=== PATIENT | female | born 1985 ===

== ENCOUNTER 2017-12-12 06:18 | Inpatient (IN) | payer OTHER ==
[2017-12-01 08:32] VITALS: BMI 29.8
[2017-12-12 06:45] LABS: HEMOGLOBIN 13.3 g/dL (12.0-16.0); MEAN CELL VOLUME 90.8 fl (81.0-99.0); MEAN CORPUSCULAR HEMOGLOBIN 30.3 pg (27.0-31.0); MEAN CORPUSCULAR HGB CONC 33.4 g/dL (33.0-37.0); RBC 4.4 Mil/uL (3.80-5.20); RED CELL DISTRIBUTION WIDTH 13.9 % (11.5-14.5); WHITE BLOOD COUNT 10.5 K/uL (4.8-10.8)
[2017-12-12] MEDS ORDERED: Lactated Ringer's 1,000 ML IV ONE ×3 (07:20→13:30)
[2017-12-12] MEDS ORDERED: Propofol 10 mg/ml Inj (20 ML) ONE (07:21)
[2017-12-12] MEDS ORDERED: ePHEDrine 50 mg/ml Inj ONE (07:21)
[2017-12-12] MEDS ORDERED: Lidocaine 4% (Laryng-O-Jet) Kit MM ONE (07:22)
[2017-12-12] MEDS ORDERED: Rocuronium 10 mg/ml (5 ml) ONE ×2 (07:22→10:38)
[2017-12-12] MEDS ORDERED: Succinylcholine 200 mg/10 ml Inj IV ONE (07:22)
[2017-12-12] MEDS ORDERED: Midazolam 2 MG/2 ML VIAL ONE (07:22)
[2017-12-12] MEDS ORDERED: Bupivacaine 0.5% Inj(30mL) ONE (07:25)
[2017-12-12] MEDS ORDERED: Sevoflurane - Inhalation Anesthetic Liq (250 ml) ONE (07:44)
[2017-12-12] MEDS ORDERED: Dexamethasone 4 mg/1 ml ONE (09:14)
[2017-12-12] MEDS: Vasopressin 20 Units/ml Inj ONE ×2 (09:46→10:00)
[2017-12-12] MEDS: Methylene Blue 10 mg/mL(10ml) IV ONE ×2 (09:47→10:05)
[2017-12-12] MEDS ORDERED: Desflurane Inhalation Anesthetic Liq (240 ml) ONE (11:26)
[2017-12-12] MEDS ORDERED: HEMOSTATIC MATRIX 10 ML DIS.NEEDLE TOP ONE ×2 (12:49→13:00)
[2017-12-12] MEDS ORDERED: DiphenhydrAMINE 50 mg/ml Inj IVP PRN (13:34)
[2017-12-12] MEDS ORDERED: Oxycodone/Acetaminophen 5/325 mg Tab PO PRN (13:40)
--- NOTE | 2017-12-12 13:40 | PCM.SURG1 ---
Surgeon's Initial Post Op Note - Surgeon's Notes Surgeon: erika armstrong md Procurement Analyst: Lacho NGUYEN Type of Anesthesia: General Endo, Local Pre-Operative Diagnosis: chronic pelvic pain. abnormal uterine bleeding. fibroid uterus. ovarian cysts Operative Findings: significant abdominal pelvic adhessions, bowel and omentum adherenet to anterior abd wall and pelvic viscera. multiple paratubal cysts large on right. complex left ovarin cyst. bulky uterus anterior wall myoma and possible adenomyosis. essure coils removed and tubes reanastamosed. diagnostic cystscopy done and normal bladder and ureters anatomy noted. chromotubation showing normal spilage from both tubes following procedure. chronic pelvic pain. abnormal uterine bleeding. fibroid uterus. ovarian cysts Post-Operative Diagnosis: chronic pelvic pain. abnormal uterine bleeding. fibroid uterus. ovarian cysts Operation Performed: Robotic assisted myomectomy. Excision of ovarian cysts and tubal cysts. Extensive enterolysis and lysis of adhesions. Tubal reanastamosis. diagnostic cystoscopy. Chromotubation Specimen/Specimens Removed: myoma. essure coils. cysts Estimated Blood Loss: EBL {In ML}: 20 Blood Products Given: N/A Drains Used: No Drains Post-Op Condition: Good Date of Surgery/Procedure: 12/12/17 Time of Surgery/Procedure: 13:59
[2017-12-12] MEDS ORDERED: Sodium Chloride 0.9% 1,000 ML IV SCH (13:45)
[2017-12-12] MEDS ORDERED: ceFAZolin 2 GM in Sodium Chloride 0.9% 100 ML IVPB SCH (13:45)
[2017-12-12] MEDS: HYDROmorphone 0.5 mg/0.5 ml ISec IVP PRN ×4 (13:46→14:20)
[2017-12-12] MEDS ORDERED: HYDROmorphone 0.5 mg/0.5 ml ISec ONE (13:46)
[2017-12-12] MEDS ORDERED: ceFAZolin IV 2 gm in Dextrose 2 GM/50 ML BAG IVPB SCH (14:30)
--- NOTE | 2017-12-12 14:46 | PCM.OP ---
Operative Report - Operative Report Date of Surgery/Procedure: 12/12/17 Time of Surgery/Procedure: 14:44 Surgeon: erika armstrong md Conveyor Line Battery Charger: Lacho NGUYEN Anesthesia/Sedation: Gen. with ET tube Pre-Operative Diagnosis: Chronic pelvic pain,. Fibroid uterus,. Abnormal uterine bleeding Post-Operative Diagnosis: Chronic pelvic pain,. Fibroid uterus,. Abnormal uterine bleeding Indication for Surgery: Worsening chronic pelvic pain, status post essure procedure several years ago with subsequent pain, abnormal uterine bleeding Operative Findings: Significant adhesions pelvic and abdominal bowel and omentum adherent to abd wall. Coilds removed, paratubal cysts removed and tubes renastamosed, chromotubation showing normal tubes with spilage Procedure/Operation Description: Robotic myomectomy. Excision of essure titanium coils. Robotic reanastamosis of Fallopian tubes. Enterolysis / lysis of adhesions. Chromotubation. Excision of cysts ovarian and paratubal. Diagnostic cystoscopy. detailed operative description. This is a 32 year 's old female with an enlarged fibroid uterus, associated abnormal uterine bleeding, and chronic pelvic pain following an issue procedure several years ago. Following complete workup at the office which included an ultrasound , urodynamic study as well as Pap smear a decision was made to proceeds with a robotic assisted myomectomy, removal of titanium tubal coils and tubal reanastomosis. After proper consent was obtained from the patient was taken to the operating room where general anesthesia was obtained without difficulty. She was placed in dorsal lithotomy position her legs were placed in adjustable Rolo stirrups. Careful attention was placed to avoid over-flexion or over- rotation of the lower extremities at the hip or the knee joints. Exam under anesthesia revealed an enlarged fibroid uterus, adnexal tenderness bilaterally. She was prepped and draped appropriately for robotic assisted myomectomy and removal of tubal coils as well as re anastomoses. Bran catheter was inserted under sterile conditions. A standard size V-care uterine manipulator was inserted through the cervix and secured. Local anesthetic solutions of 0.25% Marcaine with epinephrine were utilized to infiltrate the skin prior to all abdominal skin incisions. A total of 20 mL of 0.25% Marcaine was utilized throughout the procedure. While tenting the abdominal wall, a Veres needle was carefully inserted above the umbilicus and a pneumoperitoneum was obtained. Intraperitoneal placement was confirmed with a droplet of water test through the needle as well as a significant drop in intra-abdominal pressure. A total of approximately 3 and half liters of CO2 gas was utilized to achieve pneumoperitoneum, and the limits intra-abdominal pressure was set at 15 mm. Approximately 1 cm above the umbilicus in the midline, an 8mm incision was made with a scalpel and a robotic trocar was introduced. A robotic camera was inserted and an initial survey of the patient's abdomen revealed an enlarged bulky fibroid uterus, boggy in appearance. Extensive peritoneal and omental adhesions involving loops of bowel and anterior abdominal well were identified; Extensive peritoneal adhesions were noted in the posterior cul-de-sac. Both ovaries and fallopian tubes appeared normal however adherent to the pelvic viscera and pelvic sidewall. Multiple ovarian cysts were noted including multiple larger paratubal cysts. The patient was placed in moderate Trendelenburg position. 3 robotic ports were utilized for this procedure. The first robotic port was placed on the patient's LEFT side approximately 8 cm superior today LEFT superior iliac crest. The second robotic port was placed 8 cm superior to the iliac crest on the RIGHT side. The third robotic port was placed approx. 8 cm right lateral the camera port in the midline. And finally an purchasing assistant port which was 12 mm in diameter was inserted approximately 8 cm LEFT lateral of the camera port in the midline. Conveyor Line Battery Charger port utilized was a VersaStep trocar system. All ports were approx. aligned along the same horizontal line on the abdomen in an arched fashion. All trocars were inserted under direct visualization while tenting the abdominal wall. The placement of the trocars was all accomplished under careful and meticulous placement under direct visualization. Following the placement of all trocars, the da Silver robotic system was docked in a parallel fashion without difficulty. The following instruments were utilized for this procedure: the bipolar cautery device, a monopolar ladonna and finally a ProGrasp. Meticulous and careful lysis of adhesions as well as enterolysis was accomplished utilizing the monopolar ladonna and bipolar device. Prior to the start of the myomectomy, both ureters and their courses were visualized; peristalsis bilaterally. Extensive lysis of adhesions and enterolysis was completed using the sharp and blunt dissection. Multiple bowel loops were released following the lysis of adhesions. Diluted Pitressin solution 40 units in 120 mL of saline was utilized to inject around the myomas capsules in the anterior wall of the uterus as well in the posterior uterine wall and finally the fundus.. The injection of the PITRESSIN solution into the uterine well to assist in hemostasis vaso-constriction was accomplished for a spinal needle inserted through the abdominal well into the peritoneal cavity. It was through these incisions, that all myomas were enucleated and removed to complete the myomectomy. For each incision, a full thickness elliptical incision was made into the serosa of the uterus and carried down to the myomas capsule. Blunt and sharp dissection was used to enucleate the myomas. An elliptical incision was made into the anterior uterine wall and a cluster of small myomas were enucleated and extracted from the patient's abdomen preexistent port. This was labeled appropriately and sent to pathology. Multilayer closure was needed to close the space where the myomas were removed from. Using a 2-0 v-lock in continues fashion, good hemostasis was achieved. Excess serosa was excised to allow for tight closure of the serosal surface. All serosal incisions were closed utilizing 3-0 Monocryl in a baseball-like stitch fashion. Both anterior and posterior large elliptical incisions were closed in a similar fashion. FloSeal's as well as Interceed were applied to all incisions. Excellent hemostasis was noted throughout. The abdomen was throughout irrigated and cleared of all clots and debris. At this time methylene blue solution was infused into the endometrial cavity and secure. SHARP and blunt dissection was carried out to identify the contour of the edges of the fallopian tube coils bilaterally. At the distal edge of each tube, sharp and blunt dissections were accomplished to identify the edge of the coil visualizing its tip clearly. Proximally, sharp and blunt dissections was carried to dissect out the corneal portion the tube was embedded within the uterine wall entering the endometrial cavity. Proper access to the endometrial cavity was apparent with this spillage of methylene blue once the incision and entry was made. Both coils or labeled and sent to pathology along with a portion of the fallopian tube attached to it. Ureteral stents were then inserted through the purchasing assistant port, 5 Japanese in diameter, and inserted through the distal end of the tube throughout the entire length of the tube. The loose end was then inserted into the endometrial cavity to guide tubal reanastomosis. 5-0 Monocryl sutures utilizing black kelsey instrument were utilized to reanastomose each fallopian tube into the uterine wall cornua. The endosalpinx was reanastomosed deep into the new tunnel created within the uterine wall into the endometrial cavity. The 4 quadrants of the tubes were reanastomosed in an interrupted fashion; additional interrupted sutures were utilized to accomplish a watertight suture line. The ureteral stent was then removed. The uterine serosa was closed with 4 o Monocryl in interrupted fashion. A similar process was carried through both fallopian tubes. Both tubes were reanastomosed. Chromotubation completed at the of the procedure showed patent fallopian tubes which spillage of dye bilaterally,. All instruments removed under direct visualization and robotic arms were undocked and removed. The abdomen was throughout irrigated and cleared of all clots and debris. The peritoneum was closed with 2-0 Vicryl in continuous fashion. The fascia was closed with 0 Vicryl in continuous fashion. And the skin was closed with 4-0 Monocryl in subcutaneous fashion. All skin incisions were closed utilizing a 4-0 Monocryl in a subcutaneous fashion; Dermabond was applied to all incisions. The purchasing assistant port was closed in a fascial layer utilizing 2-0 Vicryl in an interrupted fashion. Due to the complexity and proximity to the ureters and iliac vessels, a decision was made to proceed with a diagnostic cystoscopy. A 30 degree cystoscope was advanced into the bladder, and an initial survey of the bladder revealed normal appearing bladder anatomy. The dome and trigone of the bladder were normal appearing. The ureters were visualized efluxing urine freely. Prior to incision patient received prophylactic antibiotics, prior to closure sponge lap and needle counts are correct x2. Patient tolerated the procedure well and was taken to recovery room in stable condition. Estimated Blood Loss: 20 Blood Replaced: none Sponge/Instrument Count: count correct x2 Drains: none Complications: none Specimen: uterine myomas, titanium coils from essure bilaterally, endometriosis Discharge & Condition: patient discharged home in stable condition
[2017-12-12] MEDS: Lactated Ringer's 1,000 ML IV SCH (20:22)
[2017-12-12] MEDS: ceFAZolin IV 2 gm in Dextrose 2 GM/50 ML BAG IVPB SCH (22:37)
[2017-12-13] MEDS: ceFAZolin IV 2 gm in Dextrose 2 GM/50 ML BAG IVPB SCH ×2 (05:08→13:17)
[2017-12-13 06:29] LABS: HEMOGLOBIN 11.3 g/dL (12.0-16.0); MEAN CELL VOLUME 89.9 fl (81.0-99.0); MEAN CORPUSCULAR HEMOGLOBIN 30.3 pg (27.0-31.0); MEAN CORPUSCULAR HGB CONC 33.7 g/dL (33.0-37.0); RBC 3.73 Mil/uL (3.80-5.20); RED CELL DISTRIBUTION WIDTH 13.7 % (11.5-14.5); WHITE BLOOD COUNT 10.5 K/uL (4.8-10.8)
[2017-12-13] MEDS: Lactated Ringer's 1,000 ML IV SCH (06:47)
[2017-12-13 07:00] LABS: BLOOD UREA NITROGEN 7 mg/dl (7-17); CALCIUM 8.7 mg/dL (8.4-10.2); GFR AFRICAN-AMERICAN > 60; GFR NON-AFRICAN AMERICAN > 60
[2017-12-13 08:09] VITALS: BP 102/63; RESP 16
--- NOTE | 2017-12-13 10:05 | CP.PCM.PN ---
Subjective - Date & Time of Evaluation Date of Evaluation: 12/13/17 Time of Evaluation: 10:02 - Subjective Subjective: Patient seen and examined OOB to chair comfortable. Pain well controlled. Able to transfer and void without difficulties. Tolerating diet well. No acute events overnight. Objective - Vital Signs/Intake and Output Vital Signs (last 24 hours): Temp Pulse Resp BP Pulse Ox 99.1 F 76 16 102/63 97 12/13/17 08:08 12/13/17 08:08 12/13/17 08:08 12/13/17 08:08 12/13/17 08:08 - Medications Medications: Current Medications Lactated Ringer's (Lactated Ringer's) 1,000 mls @ 125 mls/hr IV .Q8H SEBASTIAN Last Admin: 12/13/17 06:47 Dose: 125 mls/hr Sodium Chloride (Sodium Chloride 0.9%) 1,000 mls @ 100 mls/hr IV .Q10H SEBASTIAN Cefazolin Sodium/Dextrose (Ancef Iv 2 Gm Duplex) 2 gm in 50 mls @ 50 mls/hr IVPB Q8@0600,1400,2200 SEBASTIAN PRN Reason: Protocol Stop: 12/13/17 14:59 Last Admin: 12/13/17 05:08 Dose: 50 mls/hr Morphine Sulfate (Morphine) 4 mg IVP Q4 PRN PRN Reason: Pain, severe (8-10) Last Admin: 12/13/17 02:45 Dose: 4 mg Ondansetron HCl (Zofran Inj) 4 mg IVP ONCE PRN PRN Reason: Nausea/Vomiting Last Admin: 12/12/17 14:25 Dose: 4 mg Oxycodone/Acetaminophen (Percocet 5/325 Mg Tab) 2 tab PO Q6 PRN PRN Reason: Pain, moderate (4-7) Stop: 12/15/17 16:01 Last Admin: 12/13/17 07:52 Dose: 2 tab - Labs Labs: 12/13/17 05:40 12/13/17 05:40 - GI/Abdominal Exam Additional comments: Soft, mild general tenderness 2nd to surgery, portal sites clean dry and intact , no drainage, no erythema Assessment and Plan (1) Chronic pelvic pain in female Assessment & Plan: Patient is POD#1 s/p robotic tubal ligation (Essure) reversal doing well. -pain control -complete postop abx doses -OOB -clear to discharge home -case and plan d/w Dr. Ariza in agreement Status: Acute
[2017-12-13 12:41] VITALS: PULSE 82; TEMP 98.8; O2SAT 98
== END 2017-12-13 14:04 | disposition home or self-care (01) | DRG 743 ==
LOC: H.OPSURG 06:18 → H.PEDS 13:40
PROVIDERS: ADMIT Obstetrics & Gynecology; ATTEND Obstetrics & Gynecology
PROC: 0UB14ZZ Excision of Left Ovary, Percutaneous Endoscopic Approach (ICD-10-PCS; 2017-12-12)
PROC: 0UB74ZZ Excision of Bilateral Fallopian Tubes, Percutaneous Endoscopic Approach (ICD-10-PCS; 2017-12-12)
PROC: 3E1P88X Irrigation of Female Reproductive using Irrigating Substance, Via Natural or Artificial Opening Endoscopic, Diagnostic (ICD-10-PCS; 2017-12-12)
PROC: 0TJB8ZZ Inspection of Bladder, Via Natural or Artificial Opening Endoscopic (ICD-10-PCS; 2017-12-12)
PROC: 8E0W4CZ Robotic Assisted Procedure of Trunk Region, Percutaneous Endoscopic Approach (ICD-10-PCS; 2017-12-12)
PROC: 0UB94ZZ Excision of Uterus, Percutaneous Endoscopic Approach (ICD-10-PCS; principal; 2017-12-12 07:45)
PROC: 0DNW4ZZ Release Peritoneum, Percutaneous Endoscopic Approach (ICD-10-PCS; 2017-12-12 07:45)
DX: D25.9 Leiomyoma of uterus, unspecified (principal); G89.29 Other chronic pain; N73.6 Female pelvic peritoneal adhesions (postinfective); N83.12 Corpus luteum cyst of left ovary; R10.2 Pelvic and perineal pain; N83.8 Other noninflammatory disorders of ovary, fallopian tube and broad ligament; N93.8 Other specified abnormal uterine and vaginal bleeding; Z91.040 Latex allergy status